=== PATIENT | male | born 1985 | race Two or more races ===

== ENCOUNTER 2018-01-05 17:35 | Emergency (ER) | payer OTHER, SELFPAY ==
[~2018-01-05] VITALS: Ht 162.6 cm; Wt 67.1 kg
[2018-01-05 18:16] VITALS: BP 145/100
[2018-01-05] MEDS ORDERED: methylPREDNISolone SOD SUCC 125 MG/2 ML ONE (18:30)
[2018-01-05] MEDS ORDERED: LORazepam 1MG TABLET ONE (18:56)
[2018-01-05] MEDS ORDERED: LORazepam 1MG TABLET PO ONE (19:00)
== END 2018-01-05 20:24 | disposition home or self-care (01) ==
LOC: ED 19:00
DX: S06.0X0A Concussion without loss of consciousness, initial encounter (principal); M25.511 Pain in right shoulder; M54.2 Cervicalgia; F15.10 Other stimulant abuse, uncomplicated; W01.0XXA Fall on same level from slipping, tripping and stumbling without subsequent striking against object, initial encounter; Y93.89 Activity, other specified; Y99.8 Other external cause status; Y92.89 Other specified places as the place of occurrence of the external cause
CPT/HCPCS: 70450; 71046; 99284

== ENCOUNTER 2018-01-08 13:42 | Observation (INO) | payer MEDICAID, OTHER ==
[~2018-01-08] VITALS: Ht 167.6 cm; Wt 70.0 kg
[2018-01-08 14:49] LABS: BASOPHILS # (AUTO) 0.03 x10^3/uL (0-0.1); BASOPHILS % (AUTO) 0 % (0-1); EOSINOPHILS # (AUTO) 0.08 x10^3/uL (0-0.4); EOSINOPHILS % (AUTO) 1 % (1-7); LYMPHOCYTES # (AUTO) 1.92 x10^3/uL (1-3.4); LYMPHOCYTES % (AUTO) 25 % (22-44); MD NO; MEAN CORPUSCULAR HEMOGLOBIN 29.9 pg (27.5-34.5); MEAN CORPUSCULAR HGB CONC 34.6 g/dL (33.2-36.2); MEAN CORPUSCULAR VOLUME 86.4 fL (81-97); MEAN PLATELET VOLUME 9.6 fL (7.4-10.4); MONOCYTES # (AUTO) 0.41 x10^3/uL (0.2-0.8); MONOCYTES % (AUTO) 6 % (2-9); NEUTROPHILS # (AUTO) 5.11 x10^3/uL (1.8-6.8); NEUTROPHILS % (AUTO) 68 % (42-75); PLATELET COUNT 237 x10^3/uL (130-400); RED BLOOD COUNT 5.27 x10^6/uL (4.38-5.82); RED CELL DISTRIBUTION WIDTH 13.3 % (9.4-14.8)
[2018-01-08 14:57] LABS: ALBUMIN 3.5 g/dL (3.4-5.0); ANION GAP 7 mmol/L (5-15); CALCIUM 8.3 mg/dL (8.5-10.1); CHLORIDE 106 mmol/L (98-107)
[2018-01-08 15:01] LABS: ALANINE AMINOTRANSFERASE 28 U/L (12-78); ALKALINE PHOSPHATASE 128 U/L (45-117); CREATININE 0.74 mg/dL (0.7-1.3); TOTAL PROTEIN 7.6 g/dL (6.4-8.2)
[2018-01-08 15:09] LABS: ACETAMINOPHEN < 2 mcg/mL (10-30); SALICYLATE LEVEL < 1.7 mg/dL (2.8-20.0)
[2018-01-08 16:08] LABS: AMPHETAMINE SCREEN, URINE Positive (Negative); BARBITURATE SCREEN, URINE Negative (Negative); BENZODIAZEPINE SCREEN, URINE Negative (Negative); CANNABINOID SCREEN, URINE Negative (Negative); COCAINE SCREEN, URINE Negative (Negative); METHADONE SCREEN, URINE Negative (Negative); OPIATE SCREEN, URINE Negative (Negative)
[2018-01-08] MEDS ORDERED: ONDANSETRON ODT 4 MG PO PRN (21:30)
[2018-01-08] MEDS ORDERED: DIPHENHYDRAMINE 50 MG CAPSULE PO PRN (21:30)
[2018-01-08] MEDS ORDERED: ACETAMINOPHEN 325 MG TABLET PO PRN (21:30)
[2018-01-08 23:59] VITALS: BP 130/87
[2018-01-09 08:00] VITALS: BP 122/77
[2018-01-09 12:53] LABS: HEMOGLOBIN A1C 11.1 % (4.2-6.3)
[2018-01-09] MEDS: metFORMIN 500 MG TABLET PO SCH (16:33)
[2018-01-09] MEDS: INSULIN LISPRO 100 UNITS/ML, PEN SQ-INSULIN SCH ×2 (17:47→19:46)
[2018-01-09 19:37] VITALS: BP 130/82
[2018-01-10] MEDS: INSULIN LISPRO 100 UNITS/ML, PEN SQ-INSULIN SCH ×4 (07:00→23:57)
[2018-01-10 07:49] VITALS: BP 133/88
[2018-01-10] MEDS: metFORMIN 500 MG TABLET PO SCH ×2 (07:57→16:34)
[2018-01-10 19:41] VITALS: BP 126/81
[2018-01-11] MEDS: metFORMIN 500 MG TABLET PO SCH ×2 (07:42→16:52)
[2018-01-11] MEDS: INSULIN LISPRO 100 UNITS/ML, PEN SQ-INSULIN SCH ×4 (07:42→20:18)
[2018-01-11 07:55] VITALS: BP 107/73
[2018-01-11 19:31] VITALS: BP 144/88
[2018-01-12 08:08] VITALS: BP 119/80
[2018-01-12] MEDS: INSULIN LISPRO 100 UNITS/ML, PEN SQ-INSULIN SCH ×4 (08:23→19:58)
[2018-01-12] MEDS: metFORMIN 500 MG TABLET PO SCH ×2 (08:23→16:31)
[2018-01-12 19:58] VITALS: BP 124/76
[2018-01-13] MEDS: INSULIN LISPRO 100 UNITS/ML, PEN SQ-INSULIN SCH ×2 (07:23→11:54)
[2018-01-13 08:05] VITALS: BP 101/66
[2018-01-13] MEDS: metFORMIN 500 MG TABLET PO SCH (08:07)
[2018-01-13] MEDS ORDERED: METF500T17 PO (15:00)
[2018-01-13] MEDS ORDERED: GLIP10TA13 PO (15:00)
[2018-01-13] MEDS ORDERED: LANC1KIT (15:11)
[2018-01-13] MEDS ORDERED: [UNRECOGNIZED DRUG - CODE] (15:11)
[2018-01-13] MEDS ORDERED: [UNRECOGNIZED DRUG - CODE] (15:11)
== END 2018-01-13 15:42 | disposition home or self-care (01) ==
LOC: ED 16:50 → EDIP 18:15 → 2N 23:41
PROVIDERS: ADMIT Family Medicine; ATTEND Family Medicine
DX: R45.851 Suicidal ideations (principal); F32.9 Major depressive disorder, single episode, unspecified; F15.229 Other stimulant dependence with intoxication, unspecified; E11.9 Type 2 diabetes mellitus without complications; F43.24 Adjustment disorder with disturbance of conduct; I25.10 Atherosclerotic heart disease of native coronary artery without angina pectoris; Z79.84 Long term (current) use of oral hypoglycemic drugs; Z83.3 Family history of diabetes mellitus; Z91.83 Wandering in diseases classified elsewhere
CPT/HCPCS: 36415; 80053; 80307; 80329; 82043; 82962; 83036; 85025; 96372; 99285; G0378; J1815; G0480